=== PATIENT | male | born 1950 | race Caucasian/White ===

== ENCOUNTER 2017-03-02 05:22 | Emergency (ER) | payer BC, MEDICARE ==
[~2017-03-02 05:22] MED LIST: CALCIUM CHLORIDE 10% SOLN 1 GRAM/10 ML SYR IV ONE; DEXTROSE 50% IN WATER 50 ML SYRINGE IV ONE; EPINEPHrine HCL (1:10,000) 1 MG/10 ML SYRINGE IV ONE; SODIUM BICARBONATE 8.4% INJ 50 MEQ/50 ML SYR IV ONE
--- NOTE | 2017-03-02 05:54 | PD ---
HPI Chief Complaint: Code Blue Time Seen by Provider: 05:48 Travel History International Travel<30 days: No Contact w/Intl Traveler<30days: No Traveled to known affect area: No History of Present Illness HPI 66-year-old male brought in by ambulance from home in cardiac arrest. Patient has history of CAD with recent cardiac stents, diabetes, renal failure on dialysis. According to EMS, the patient's heard the patient make a strange noise, then vomited, then became unresponsive. He was unresponsive for about 15 minutes prior to their arrival. When they arrived at the home, the patient was unresponsive and pulseless. ACLS protocol was initiated immediately. Combitube was placed by EMS, and the patient received 4 rounds of epi prior to arrival. They also noticed his blood sugar to be in the 40s and provided an amp of D50 through left pretibial IO. Upon arrival to the emergency Department, ACLS protocol was continued. Combitube was switched to an 8.0 [place] ET tube by me. Patient received several more rounds of epinephrine, bicarbonate, calcium, dextrose, and normal saline. Initial rhythm check in the emergency department was PEA. Patient had a brief episode of V. fib and was defibrillated at that time. Patient's daughter and were brought to the bedside to observe resuscitation efforts, and at 5:42 AM the patient's decided that it was time to cease efforts. Patient was pronounced at this time. PFSH Past Medical History Arthritis: Yes Asthma: No Autoimmune Disease: No Heart Rhythm Problems: No High Cholesterol: No Chest Pain: No Congestive Heart Failure: No COPD: No Cerebrovascular Accident: No Diabetes: Yes GERD: No Glaucoma: No Headaches: No Hepatitis: No Hiatal Hernia: No Hypertension: No Kidney Stones: No Myocardial Infarction: No Renal Failure: No Seizures: No Sleep Apnea: No Thyroid Disease: No Ulcer: No Past Surgical History Abdominal Surgery: No AICD: No Cardiac Surgery: No Ear Surgery: No Endocrine Surgery: No Eye Surgery: No Genitourinary Surgery: No Gynecologic Surgery: No Oral Surgery: No Pacemaker: No Thoracic Surgery: No Social History Alcohol Use: Yes (A FEW) Tobacco Use: No Substance Use: No Allergies-Medications (Allergen,Severity, Reaction): Coded Allergies: No Known Allergies (Verified Allergy, Severe, 07/02/04) Review of Systems ROS Limitations: Clinical Condition, Unresponsive Physical Exam Narrative GENERAL: Well-developed, well-nourished, obtunded, no spontaneous respirations SKIN: Focused skin assessment warm/dry. Left upper arm dialysis fistula. HEAD: Atraumatic. Normocephalic. EYES: Pupils equal, round, 5 mm, unreactive. ENT: Mucous membranes pink and moist. Combitube. Significant amount of emesis in posterior pharynx, face, and chest. NECK: Trachea midline. No JVD. CARDIOVASCULAR: Pulseless. RESPIRATORY: No spontaneous respirations. GASTROINTESTINAL: Abdomen soft, nondistended. MUSCULOSKELETAL: Right BKA. NEUROLOGICAL: Obtunded. Unresponsive to verbal or painful stimuli. No spontaneous movements. MDM Medical Decision Making Medical Screen Exam Complete: Yes Emergency Medical Condition: Yes Differential Diagnosis Cardiac arrest, MO, dysrhythmia, hypoglycemia, PE, hyperkalemia, Narrative Course See HPI Procedures Procedure Narrative Emergent intubation: The patient was put in optimal position for the procedure. The patient was intubated with a 8.0F cuffed endotracheal tube using the GlideScope. Tube placement was confirmed by visualization of the tube and balloon passing through the cords, and capnometry. Breath sounds were equal and well aerated bilaterally postintubation. No breath sounds over stomach. Diagnosis Primary Impression: Cardiac arrest Condition: Craig Thomson MD March 02, 2017 05:54
== END 2017-03-02 07:20 | disposition expired ==
LOC: NEPC 05:22
DX: I46.9 Cardiac arrest, cause unspecified (principal)
CPT/HCPCS: 31500; 92950; 99285; J0171